=== PATIENT | male | born 1980 | race American Indian/Alaskan Native ===

== ENCOUNTER 2022-01-31 16:40 | Emergency (ER) | payer SELFPAY | END 2022-02-01 09:21 | disposition left against medical advice (07) | LOC: ED 16:40 | DX: Z31.89 Encounter for other procreative management (principal); Z53.21 Procedure and treatment not carried out due to patient leaving prior to being seen by health care provider ==

== ENCOUNTER 2022-02-01 21:45 | Inpatient (IN) | payer OTHER ==
[2022-02-01 22:41] LABS: Amphetamine Screen,Urine PRESUMPTIVE NEGATIVE; Benzodiazepines Screen,Urine PRESUMPTIVE NEGATIVE; Cannabinoid Screen,Urine PRESUMPTIVE NEGATIVE; Cocaine Screen,Urine PRESUMPTIVE NEGATIVE; Methadone Screen,Urine PRESUMPTIVE NEGATIVE; Opiate Screen,Urine PRESUMPTIVE NEGATIVE
[2022-02-01 22:47] LABS: Bilirubin,Urine NEG (Negative); Blood,Urine MOD (Negative); Color,Urine Amber (Yellow); Mucus,Urine 2+ /HPF; Urobilinogen,Urine < 2.0 mg/dL (<2.0)
[2022-02-01 22:48] LABS: Protein,Urine >500 mg/dL (Negative)
[2022-02-01 22:57] LABS: Basophils % (Auto) 0.5 % (0.0-1.8); Hematocrit 41.7 % (35.5-45.6); Hemoglobin 14.2 gm/dl (11.8-15.2); Mean Corpuscular HGB Conc 34 % (32-34); Mean Corpuscular Volume 89 fl (84-94); Monocytes # (Auto) 0.5 K/mm3 (0.0-0.8); Monocytes % (Auto) 7.7 % (0.0-7.3); Platelet Count 151 K/mm3 (140-440); Red Blood Count 4.68 M/mm3 (3.65-5.03); Red Cell Distribution Width 14.7 % (13.2-15.2)
--- NOTE | 2022-02-01 23:01 | XRay Report ---
CHEST 2 VIEWS INDICATION / CLINICAL INFORMATION: CHEST PAIN. COMPARISON: None available. FINDINGS: SUPPORT DEVICES: None. HEART / MEDIASTINUM: No significant abnormality. LUNGS / PLEURA: No significant pulmonary or pleural abnormality. No pneumothorax. BONES: No significant osseous abnormality. ADDITIONAL FINDINGS: No significant additional findings. IMPRESSION: 1. No active cardiopulmonary disease. Signer Name: Thierno Castro II, MD Signed: 02/01/2022 10:57 PM Workstation Name: [id number]
[2022-02-01 23:21] LABS: Alanine Aminotransferase 115 units/L (7-56); Albumin 4.2 g/dL (3.9-5); BUN/Creatinine Ratio 8; Blood Urea Nitrogen 11 mg/dL (9-20); Calcium 8.2 mg/dL (8.4-10.2); Hemolysis Index 16
[2022-02-02] MEDS ORDERED: LORazepam 2 MG/ML VIAL IV ONE ×4 (03:40→11:27)
[2022-02-02] MEDS ORDERED: ONDANSETRON 4 MG/2 ML INJ IV ONE ×2 (03:40→06:53)
--- NOTE | 2022-02-02 03:55 | Emergency Department Report ---
<MARSHALL FAIR - Last Filed: 02/02/22 05:16> ED General Adult HPI - General Chief complaint: Medical Clearance Stated complaint: MENTAL EVAL PUI?: No Time Seen by Provider: 02/02/22 03:36 Source: patient Mode of arrival: Ambulatory Limitations: No Limitations - History of Present Illness Initial comments: THIS IS A 42 YEAR OLD MALE BROUGHT IN BY SIGNIFICANT OTHER FOR MEDICAL CLEARANCE FOR [facility] WHICH PATIENT HAS HISTORY OF HYPERTENSION AND IS CURRENTLY DETOXING FROM ALCOHOL; LAST ALCOHOL USE WAS TODAY. PATIENT STATES HE DOESN'T FEEL WELL AND HAS BEEN VOMITING. DENIES ANY OTHER SYMPTOMS. PATIENT DENIES fever chill night sweat dizziness blurred vision lightheadedness headache tinnitus ear pain runny nose sore throat loss of taste loss of smell chest pain palpitation short breath cough abdominal pain diarrhea constipation dysuria myalgia arthralgia new rash he will call intolerance. - Related Data Allergies Allergy/AdvReac Type Severity Reaction Status Date / Time No Known Allergies Allergy Verified 02/01/22 22:16 ED Review of Systems Comment: All other systems reviewed and negative Constitutional: see HPI, chills, diaphoresis Eyes: as per HPI ENT: as per HPI Respiratory: no symptoms reported, see HPI Cardiovascular: as per HPI. denies: chest pain, palpitations Endocrine: no symptoms reported, see HPI Gastrointestinal: as per HPI, nausea, vomiting Musculoskeletal: as per HPI Skin: as per HPI Neurological: as per HPI Psychiatric: as per HPI. denies: homicidal thoughts, suicidal thoughts Hematological/Lymphatic: as per HPI ED Past Medical Hx - Past Medical History Previous Medical History?: Yes ED Physical Exam - General General appearance: anxious, obese, other (DIAPHORETIC) - Head Head exam: Present: atraumatic, normocephalic, normal inspection - Eye Eye exam: Present: normal appearance, PERRL, EOMI Pupils: Present: normal accommodation - ENT ENT exam: Present: normal exam, normal orophraynx, mucous membranes moist - Neck Neck exam: Present: normal inspection, full ROM - Respiratory Respiratory exam: Present: normal lung sounds bilaterally - Cardiovascular Cardiovascular Exam: Present: tachycardia - GI/Abdominal GI/Abdominal exam: Present: soft. Absent: distended, tenderness, guarding, rebound - Extremities Exam Extremities exam: Present: normal inspection, full ROM - Back Exam Back exam: Present: normal inspection, full ROM - Neurological Exam Neurological exam: Present: alert, oriented X3, CN II-XII intact - Psychiatric Psychiatric exam: Present: anxious - Skin Skin exam: Present: normal color ED Course - Reevaluation(s) Reevaluation #1: 02/02/22 04:37 After Ativan was given and during my reevaluation, patient much more calm and no diaphoretic and states he feels much better. I have informed him the KUB finding and patient denies any right sided abdominal discomfort. Will obtain an CT abdomen/pelvis w/o contrast for evaluation. 02/02/22 05:16 I HAVE INFORMED RN TO GIVE LASIX TO ANOTHER PATIENT BUT IT APPEARS IT WAS GIVEN TO THIS PATIENT BY ACCIDENT WHICH WAS NOT ORDERED BY ME. PATIENT'S HEART RATE IN 170S AND APPEARS REGULAR ON MONITOR. INFORMED RN TO OBTAIN ANOTHER EKG TO ENSURE SINUS AND ALSO GIVE 1L NS NOW. I HAVE SEEN THE PATIENT AND AGAIN, PATIENT DENIES TO BE IN ANY DISCOMFORT. AT 6AM, I WILL SIGN OUT MY PATIENT CARE TO MY COLLEAGUE DR. DE LOS SANTOS ED Medical Decision Making - Lab Data Result diagrams: 02/01/22 22:49 02/01/22 22:49 - EKG Data -: EKG Interpreted by Me (SINUS TACHY AT 149 BPM; NO ST ELEVATION OR DEPRESSION. NO WELLEN WAVES. ) EKG shows normal: sinus rhythm Rate: tachycardia ED Disposition Clinical Impression: Hypertensive urgency Alcohol withdrawal Qualifiers: Complication of substance-induced condition: with unspecified complication Qualified Code(s): F10.239 - Alcohol dependence with withdrawal, unspecified Disposition: ADMITTED INPATIENT Condition: Serious Additional Instructions: OUTPATIENT MENTAL HEALTH RESOURCES [facility], [facility] Catalina Nguyen MD: [address] [place] [address] [facility] [address] [place] [address] [place], [place] [id number] [facility]: [employer] [address] [place] [address] [place] [address] [phone] [facility]: [facility] Healthcare: [address] [place] [address] [address] [place] [address] [place] [address] [place] [address] [facility]: Kendall Vanessa MD: [address] [place], [place] [id number] [facility]: [address] [place] [address] [phone] [place] [facility]: Referrals: JESÚS VILLANUEVA MD [Staff Physician] - 3-5 Days <BEENA DE LOS SANTOS - Last Filed: 02/02/22 11:02> ED Review of Systems ROS: Stated complaint: MENTAL EVAL Other details as noted in HPI ED Course Vital Signs 02/01/22 02/02/22 02/02/22 22:02 03:21 04:02 Temperature 99.1 F 98.4 F Pulse Rate 156 H 158 H Respiratory 20 18 Rate Blood Pressure 187/118 180/140 Blood Pressure [Right] O2 Sat by Pulse 97 93 80 L Oximetry 02/02/22 02/02/22 02/02/22 04:08 04:16 04:30 Temperature 97.9 F Pulse Rate 93 H 157 H 146 H Respiratory 21 25 H 18 Rate Blood Pressure 185/124 Blood Pressure 173/111 [Right] O2 Sat by Pulse 94 94 95 Oximetry 02/02/22 02/02/22 02/02/22 04:46 05:00 05:16 Temperature Pulse Rate 152 H 164 H Respiratory 18 12 Rate Blood Pressure 188/140 170/130 180/121 Blood Pressure [Right] O2 Sat by Pulse 95 93 97 Oximetry 02/02/22 02/02/22 02/02/22 05:30 05:46 06:00 Temperature 98.0 F Pulse Rate 157 H 178 H Respiratory 20 37 H Rate Blood Pressure 180/121 176/121 Blood Pressure [Right] O2 Sat by Pulse 94 97 Oximetry 02/02/22 02/02/22 02/02/22 06:01 06:04 06:16 Temperature 98.0 F Pulse Rate 151 H 165 H 164 H Respiratory 32 H 19 22 Rate Blood Pressure 176/121 Blood Pressure [Right] O2 Sat by Pulse 97 97 93 Oximetry 02/02/22 02/02/22 02/02/22 06:30 06:46 07:00 Temperature Pulse Rate 159 H 171 H 161 H Respiratory 19 18 24 Rate Blood Pressure Blood Pressure [Right] O2 Sat by Pulse 94 94 94 Oximetry 02/02/22 02/02/22 02/02/22 07:16 07:30 07:37 Temperature Pulse Rate 161 H 170 H Respiratory 26 H 22 Rate Blood Pressure Blood Pressure 166/124 [Right] O2 Sat by Pulse 96 97 99 Oximetry 02/02/22 02/02/22 02/02/22 07:51 08:01 08:15 Temperature Pulse Rate 165 H 155 H 156 H Respiratory 22 22 19 Rate Blood Pressure Blood Pressure [Right] O2 Sat by Pulse 96 95 91 Oximetry 02/02/22 02/02/22 02/02/22 08:31 08:36 08:45 Temperature Pulse Rate 168 H 167 H Respiratory 25 H 30 H Rate Blood Pressure 206/144 Blood Pressure 201/124 [Right] O2 Sat by Pulse 95 96 Oximetry 02/02/22 02/02/22 02/02/22 09:01 09:15 09:28 Temperature Pulse Rate 168 H 125 H 167 H Respiratory 20 23 Rate Blood Pressure 204/149 204/149 201/144 Blood Pressure [Right] O2 Sat by Pulse 97 98 Oximetry 02/02/22 02/02/22 02/02/22 09:31 09:45 10:01 Temperature Pulse Rate 133 H 132 H 131 H Respiratory 15 28 H 27 H Rate Blood Pressure 177/128 177/128 176/133 Blood Pressure [Right] O2 Sat by Pulse 95 96 95 Oximetry 02/02/22 02/02/22 02/02/22 10:15 10:31 10:45 Temperature Pulse Rate 130 H 133 H 131 H Respiratory 30 H 29 H 22 Rate Blood Pressure 184/133 182/126 182/126 Blood Pressure [Right] O2 Sat by Pulse 96 96 96 Oximetry - Reevaluation(s) Reevaluation #2: 02/02/22 08:49 This patient is signed to me at shift change 6 AM with possible alcohol withdrawal with tachycardia. He was given 1 mg of Ativan just before I arrived at the emergency room. On evaluation patient was noticed to be having generalized tremor with tachycardia at the rate 130s beats per minute. I have asked the patient the last time he has any alcohol and he reported about 3 days. Patient denies any chest pain or shortness of breath. Given 5 mg Valium and will consider admitting this patient to ICU for further evaluation and treatment 02/02/22 08:52 I was informed that Lasix that was supposed to be given to another patient was given to this patient before i arrived. Reevaluation #3: 02/02/22 09:16 Patient told his bedside nurse that is also on metoprolol and has not been able to take it for the last 4 days for no reason. Considering that this patient is tachycardic and hypertensive with likely alcohol withdrawal so we will go ahead and give labetalol 20 mg and continue to monitor. Reevaluation #4: 02/02/22 11:[address] Aj and get patient admitted to medical floor with telemetry-- ED Medical Decision Making - Lab Data Result diagrams: 02/01/22 22:49 02/01/22 22:49 Critical care attestation.: If time is entered above; I have spent that time in minutes in the direct care of this critically ill patient, excluding procedure time. ED Disposition Is pt being admited?: Yes Does the pt Need Aspirin: No Time of Disposition: 11:01 (Dr Aj accept pt for further evaluation)
--- NOTE | 2022-02-02 04:30 | XRay Report ---
XR abdomen 1V ap INDICATION / CLINICAL INFORMATION: N/V. COMPARISON: None available. TECHNIQUE: One view supine AP abdomen. FINDINGS: TUBES / LINES: None. BOWEL GAS PATTERN: No significant abnormality. FREE AIR / EXTRALUMINAL GAS: None seen. ADDITIONAL FINDINGS: 4-5 mm right-sided nephrolith. Additional calcification projecting over the righ t SI joint may reflect distal right ureteral stone. IMPRESSION: 1. Probable right-sided nephrolith. A distal right ureteral stone not excluded. 2. No specific abnormality of the bowel gas pattern. Signer Name: Thierno Castro II, MD Signed: 02/02/2022 4:26 AM Workstation Name: [id number]
[2022-02-02] MEDS ORDERED: FUROSEMIDE 20 MG/2 ML INJ IV ONE (04:31)
[2022-02-02] MEDS ORDERED: LIDOCAINE VISCOUS 2% 15 ML ORAL LIQD PO ONE (04:48)
[2022-02-02] MEDS ORDERED: ALUM-MAG HYDROXIDE-SIMETHICONE 200-200-20MG/5ML ORAL LIQD 30 ML PO ONE (04:48)
[2022-02-02] MEDS ORDERED: SODIUM CHLORIDE 0.9% 1000 ML 1,000 ML IV ONE ×2 (05:15→07:25)
--- NOTE | 2022-02-02 06:23 | Cat Scan Report ---
CT ABDOMEN AND PELVIS WITHOUT CONTRAST INDICATION / CLINICAL INFORMATION: Possible renal / ureter stone seen on abdominal x-ray.. TECHNIQUE: Axial CT images were obtained through the abdomen and pelvis without IV contrast. All CT scans at this location are performed using CT dose reduction for ALARA by means of automated exposure control. COMPARISON: KUB 02/02/2022 FINDINGS: LOWER CHEST: No acute findings. Mild cardiomegaly. Fuvug-li-lbnuzzye hiatal hernia. LIVER: Diffuse low attenuation compatible with hepatic steatosis. GALLBLADDER: Cholelithiasis. Small stone likely reflects density on recent radiograph. BILE DUCTS: No significant abnormality. SPLEEN: No significant abnormality. PANCREAS: No significant abnormality. ADRENALS: No significant abnormality. KIDNEYS/URETERS: No urolithiasis. Mild prominence of the left ureter. Kidneys otherwise unremarkable. STOMACH / DUODENUM / SMALL BOWEL: The stomach, duodenum, and small bowel demonstrate no significant a bnormality. No specific abnormality of the mesentery demonstrated. COLON: No significant abnormality. APPENDIX: No significant abnormality. PERITONEUM: No free air or free fluid are present within the abdomen or pelvis. LYMPH NODES: No significant adenopathy. AORTA / ARTERIES: No significant abnormality. IVC / VEINS: No significant abnormality. URINARY BLADDER: No significant abnormality. REPRODUCTIVE ORGANS: No significant abnormality. ADDITIONAL ABDOMINAL/PELVIC FINDINGS: Fat-containing midline ventral hernia without incarceration. SKELETAL SYSTEM: No significant abnormality. IMPRESSION: 1. Cholelithiasis. 2. Hepatic steatosis. Signer Name: Thierno Castro II, MD Signed: 02/02/2022 6:18 AM Workstation Name: [id number]
[2022-02-02] MEDS ORDERED: diphenhydrAMINE 50 MG/ML VIAL ONE (08:32)
[2022-02-02] MEDS ORDERED: diphenhydrAMINE 50 MG/ML VIAL IV ONE (08:37)
[2022-02-02] MEDS ORDERED: diazePAM 10 MG/2 ML SYRINGE IV ONE (08:42)
--- NOTE | 2022-02-02 10:15 | Electrocardiograph Report ---
[facility] Test Date: 2022-02-02 Test Time: 05:23:35 Pat Name: MINDY QUINN Department: Room: Gender: M Legal Process Specialist: NURSE : 1980 Requested By: MARSHALL FAIR Order Number: [id number] Reading MD: Raúl Arce Measurements Intervals [place] Rate: 158 P: 36 [place]: 120 QRS: 21 QRSD: 92 T: 49 QT: 343 QTc: 556 Interpretive Statements Sinus tachycardia Anteroseptal infarct, age indeterminate Prolonged QT interval Compared to ECG 02/02/2022 04:23:43 Myocardial infarct finding now present Prolonged QT interval now present T-wave abnormality no longer present Possible ischemia no longer present Electronically Signed On 02-02-2022 10:15:39 EDT by Raúl Arce
--- NOTE | 2022-02-02 10:15 | Electrocardiograph Report ---
[facility] Test Date: 2022-02-01 Test Time: 22:06:34 Pat Name: MINDY QUINN Department: Room: Gender: M Packaging Inspector: DB : 1980 Requested By: MARSHALL FAIR Order Number: [id number] Reading MD: Raúl Arce Measurements Intervals [place] Rate: 137 P: 58 [place]: 155 QRS: 79 QRSD: 100 T: 224 QT: 307 QTc: 465 Interpretive Statements Sinus tachycardia LAE, consider biatrial enlargement Abnormal T, consider ischemia, lateral leads No previous ECG available for comparison Electronically Signed On 02-02-2022 10:14:37 EDT by Raúl Arce
--- NOTE | 2022-02-02 10:15 | Electrocardiograph Report ---
[facility] Test Date: 2022-02-02 Test Time: 04:23:43 Pat Name: MINDY QUINN Department: Room: Gender: M Billboard Mechanic: LILIANE : 1980 Requested By: MARSHALL FAIR Order Number: [id number] Reading MD: Raúl Arce Measurements Intervals [place] Rate: 149 P: 33 [place]: 112 QRS: 41 QRSD: 102 T: 196 QT: 312 QTc: 491 Interpretive Statements Sinus tachycardia Abnormal T, consider ischemia, diffuse leads Compared to ECG 02/01/2022 22:06:34 No significant changes Electronically Signed On 02-02-2022 10:15:27 EDT by Raúl Arce
[2022-02-02] MEDS ORDERED: ONDANSETRON 4 MG/2 ML INJ IV PRN (11:04)
[2022-02-02] MEDS ORDERED: ACETAMINOPHEN 325 MG TAB PO PRN ×2 (11:04→13:00)
[2022-02-02] MEDS ORDERED: LORazepam 2 MG/ML VIAL ONE (11:25)
--- NOTE | 2022-02-02 12:24 | Consultation ---
History of Present Illness - Reason for Consult Consult date: 02/02/22 Reason for consult: ETOH Dependence - History of Present Psychiatric Illness HPI: THIS IS A 42 YEAR OLD MALE BROUGHT IN BY SIGNIFICANT OTHER FOR MEDICAL CLEARANCE FOR [facility] WHICH PATIENT HAS HISTORY OF HYPERTENSION AND IS CURRENTLY DETOXING FROM ALCOHOL; LAST ALCOHOL USE WAS TODAY. PATIENT STATES HE DOESN'T FEEL WELL AND HAS BEEN VOMITING. DENIES ANY OTHER SYMPTOMS. The patient was seen today. He says he came to the ER to get cleared to go to [facility] for alcohol dependence treatment. The patient is calm, cooperative and polite. His significant other is at bedside. He tells me it's okay to speak in front of her. The patient says he drinks a pint of rum daily. He says his last drinik was yesterday. He says he's never had rehab before. The patient's girlfriend says he started seeing psych about a week ago for depression. She says he was started on prozac and vistaril. His girlfriend says the vistaril made the patient more anxious. The patient denies SI/HI. He denies past attempts or ever feeling thoughts of self harm. He also denies hallucinations of any kind. The patient denies any illicit drug use or nicotine. Will place on CIWA and start medications. Will follow the patient during his stay in the hospital for med management. PAST PSYCHIATRIC HISTORY Diagnoses: MDD Suicide attempts or Self-harm behavior: Denies Prior psychiatric hospitalizations: Denies Substance Abuse history: Alcohol Previous psychiatric medications tried: Vistaril and prozac Outpatient treatment: Yes PAST MEDICAL HISTORY: None reported Family Psychiatric History: None reported or documented SOCIAL HISTORY Marital Status: Living Arrangements: Lives with girlfriend Employment Status: Unemployed Access to guns/weapons: Denies Education: History of Abuse: Yes Legal History: Unknown REVIEW OF SYSTEMS Constitutional: Negative for weight loss ENT: Negative for stridor Respiratory: Negative for cough or hemoptysis All other systems reviewed and are negative MENTAL STATUS EXAMINATION General Appearance and Behavior: Age appropriate, good hygiene, wearing appropriate clothes, good eye contact, calm, cooperative Cooperation: Participating/engaged, but Guarded Psychomotor Behavior: Psychomotor normal Mood: okay Affect and affective range: congruent with stated mood Thought Process: goal directed Thought Content: None Speech: normal tone and pace Suicidal Ideation: Denies Homicidal Ideation: Denies Hallucinations: Denies Delusions: None elicited Impulse Control: Limited Insight and Judgment: Good insight and judgment Memory: Good Attention: attentive Orientation: Alert, oriented Assessment and Plan Major Depressive Disorder Alcohol Dependence Treatment Plan CIWA Start Prozac 30mg po daily Start Buspar 7.5mg po BID Start Trazodone 50mg po qhs Medical: per primary Sitter: Defer to primary Disposition: Do not recommend acute psychiatric inpatient treatment. The patient understands that if SI/HI or any fear of endangerment she is to seek immediate assistance. The linotypist to give the patient referrals for outpatient psych and alcohol rehab The patient to abstain from alcohol Will follow for med management. Thanks Case staffed with Dr. Cavazos Medications and Allergies Allergies Allergy/AdvReac Type Severity Reaction Status Date / Time No Known Allergies Allergy Verified 02/01/22 22:16 Home Medications Medication Instructions Recorded Confirmed Last Taken Type Lasix 20 mg PO DAILY 02/02/22 02/02/22 01/29/22 History Losartan 25 mg PO DAILY 02/02/22 02/02/22 01/29/22 History Metoprolol Succinate 50 mg PO DAILY 02/02/22 02/02/22 01/29/22 History Active Meds: Active Medications Acetaminophen (Acetaminophen 325 Mg Tab) 650 mg PO Q4H PRN PRN Reason: Pain MILD(1-3)/Fever >100.5/WAHL Morphine Sulfate (Morphine 2 Mg/1 Ml Inj) 2 mg IV Q4H PRN PRN Reason: Pain, Moderate (4-6) Ondansetron HCl (Ondansetron 4 Mg/2 Ml Inj) 4 mg IV Q8H PRN PRN Reason: Nausea And Vomiting Sodium Chloride (Sodium Chloride 0.9% 10 Ml Flush Syringe) 10 ml IV BID WILBUR Last Admin: 02/02/22 11:27 Dose: 10 ml Sodium Chloride (Sodium Chloride 0.9% 10 Ml Flush Syringe) 10 ml IV PRN PRN PRN Reason: LINE FLUSH Mental Status Exam - Vital signs Last Vital Signs Temp 98.0 F 02/02/22 06:01 Pulse 139 H 02/02/22 12:01 Resp 28 H 02/02/22 12:01 BP 195/140 02/02/22 12:01 Pulse Ox 98 02/02/22 12:01 Results Result Diagrams: 02/01/22 22:49 02/01/22 22:49 Abnormal lab results 02/01/22 02/01/22 02/01/22 Range/Units 04:07 22:49 22:49 [place] % (Auto) (0.0-7.3) % Lymph # (Auto) (1.2-5.4) K/mm3 Seg Neutrophils % (40.0-70.0) % Chloride (98-107) mmol/L Glucose (75-100) mg/dL Calcium (8.4-10.2) mg/dL AST (5-40) units/L ALT (7-56) units/L Ur Specific [place] 1.038 H (1.003-1.030) Salicylates < 0.3 L (2.8-20.0) mg/dL Acetaminophen 5.0 L (10.0-30.0) ug/mL Plasma/Serum Alcohol (0-0.07) % 02/01/22 02/01/22 02/01/22 Range/Units 22:49 22:49 22:49 [place] % (Auto) 7.7 H (0.0-7.3) % Lymph # (Auto) 1.0 L (1.2-5.4) K/mm3 Seg Neutrophils % 76.8 H (40.0-70.0) % Chloride 95.8 L (98-107) mmol/L Glucose 162 H (75-100) mg/dL Calcium 8.2 L (8.4-10.2) mg/dL AST 251 H (5-40) units/L ALT 115 H (7-56) units/L Ur Specific [place] (1.003-1.030) Salicylates (2.8-20.0) mg/dL Acetaminophen (10.0-30.0) ug/mL Plasma/Serum Alcohol 0.28 H (0-0.07) % All other labs normal.
[2022-02-02] MEDS ORDERED: METOCLOPRAMIDE 10 MG/2 ML INJ IV PRN (12:28)
[2022-02-02] MEDS ORDERED: LORazepam 2 MG/ML VIAL IV PRN (12:29)
[2022-02-02] MEDS: busPIRone 5 MG TAB PO SCH ×2 (14:48→21:46)
[2022-02-02] MEDS: carvediloL 12.5 MG TAB PO SCH ×2 (14:48→21:47)
[2022-02-02] MEDS: FLUoxetine 10 MG TAB PO SCH (14:48)
[2022-02-02] MEDS: VALSARTAN 160MG TAB PO SCH (14:48)
[2022-02-02] MEDS: FAMOTIDINE 20 MG/2 ML INJ IV SCH ×2 (14:49→21:46)
[2022-02-02] MEDS: D5W/0.9% NACL 1,000 ML IV SCH ×2 (14:49→23:32)
[2022-02-02] MEDS: LORazepam 2 MG/ML VIAL IV PRN ×3 (15:06→23:27)
[2022-02-02] MEDS: hydrALAZINE 20 MG/1 ML INJ IV PRN (20:24)
[2022-02-02] MEDS: chlordiazePOXIDE 25 MG CAP PO PRN (20:30)
[2022-02-02] MEDS: traZODone 50 MG TAB PO SCH (21:46)
[2022-02-03] MEDS: chlordiazePOXIDE 25 MG CAP PO PRN ×2 (00:54→21:26)
[2022-02-03] MEDS: VALSARTAN 160MG TAB PO SCH (02:25)
[2022-02-03] MEDS: LORazepam 2 MG/ML VIAL IV PRN ×3 (03:57→08:26)
[2022-02-03] MEDS ORDERED: dilTIAZem 25 MG/5 ML INJ IV ONE (04:12)
[2022-02-03] MEDS ORDERED: SODIUM CHLORIDE 0.9% 500 ML 500 ML IV ONE (04:24)
[2022-02-03 04:49] LABS: Basophils % (Auto) 0.4 % (0.0-1.8); Eosinophils % (Auto) 0.4 % (0.0-4.3); Hematocrit 37.2 % (35.5-45.6); Hemoglobin 12.3 gm/dl (11.8-15.2); Lymphocytes % (Auto) 13.6 % (13.4-35.0); Mean Corpuscular HGB Conc 33 % (32-34); Mean Corpuscular Volume 90 fl (84-94); Monocytes # (Auto) 0.6 K/mm3 (0.0-0.8); Monocytes % (Auto) 8.2 % (0.0-7.3); Platelet Count 115 K/mm3 (140-440); Red Blood Count 4.14 M/mm3 (3.65-5.03); Red Cell Distribution Width 14.3 % (13.2-15.2)
[2022-02-03 05:05] LABS: Albumin 3.7 g/dL (3.9-5); Calcium 8.1 mg/dL (8.4-10.2)
--- NOTE | 2022-02-03 05:30 | Event Note ---
Date: 02/03/22 Code med was called. Patient is agitated tachycardic BP is 162/116. Patient has a history of bad alcohol abuse. Patient is on CIWA protocol and Ativan but still patient is agitated try to get out of bed and get out of restraints. Patient is tachycardic BP is skyhigh. Give the patient Cardizem 10 mg IV x1 dose, IV Ativan and transfer the patient to the IMCU and start Precedex drip
--- NOTE | 2022-02-03 06:29 | History and Physical Report ---
History of Present Illness Date of examination: 02/02/22 Date of admission: 02/02/22 11:04 Chief complaint: Severe agitation History of present illness: 42-year-old male brought in by significant other for medical clearance for removal wounds for alcohol rehab. Patient history of hypertension. Every alcohol consumption. Last alcohol use was today. Patient apparently drinks a lot of vodka on a regular basis. Because of his high blood pressure which could not be controlled patient being admitted to the hospitalist service. Patient was severely agitated. More calm during my examination. Patient is willing for detoxification. Patient is willing to stop alcohol. Review of Systems Comment: All other systems reviewed and negative Constitutional: see HPI, chills, diaphoresis Eyes: as per HPI ENT: as per HPI Respiratory: no symptoms reported, see HPI Cardiovascular: as per HPI. denies: chest pain, palpitations Endocrine: no symptoms reported, see HPI Gastrointestinal: as per HPI, nausea, vomiting Musculoskeletal: as per HPI Skin: as per HPI Neurological: as per HPI Psychiatric: as per HPI. denies: homicidal thoughts, suicidal thoughts Hematological/Lymphatic: as per HPI Past History Past Medical History: hypertension Past Surgical History: No surgical history Social history: lives with family, full code Family history: hypertension Medications and Allergies Allergies Allergy/AdvReac Type Severity Reaction Status Date / Time No Known Allergies Allergy Verified 02/01/22 22:16 Home Medications Medication Instructions Recorded Confirmed Last Taken Type Furosemide [Lasix] 20 mg PO QDAY 02/02/22 02/02/22 01/29/22 History Losartan [Cozaar] 25 mg PO QDAY 02/02/22 02/02/22 01/29/22 History Metoprolol Xl [Metoprolol 50 mg PO QDAY 02/02/22 02/02/22 01/29/22 History SUCCINATE ER TAB] Active Meds: Active Medications Acetaminophen (Acetaminophen 325 Mg Tab) 650 mg PO Q4H PRN PRN Reason: Pain MILD(1-3)/Fever >100.5/WAHL Buspirone HCl (Buspirone 5 Mg Tab) 7.5 mg PO BID [facility] Last Admin: 02/02/22 21:46 Dose: 7.5 mg Carvedilol (Carvedilol 12.5 Mg Tab) 12.5 mg PO BID [facility] Last Admin: 02/02/22 21:47 Dose: 12.5 mg Chlordiazepoxide HCl (Chlordiazepoxide 25 Mg Cap) 50 mg PO Q1HR PRN PRN Reason: Rolando 05-14 Last Admin: 02/03/22 00:54 Dose: 50 mg Famotidine (Famotidine 20 Mg/2 Ml Inj) 20 mg IV BID [facility] Last Admin: 02/02/22 21:46 Dose: 20 mg Fluoxetine HCl (Fluoxetine 10 Mg Tab) 30 mg PO QDAY [facility] Last Admin: 02/02/22 14:48 Dose: 30 mg Hydralazine HCl (Hydralazine 20 Mg/1 Ml Inj) 10 mg IV Q2H PRN PRN Reason: Blood Pressure Last Admin: 02/02/22 20:24 Dose: 10 mg Dextrose/Sodium Chloride (D5ns) 1,000 mls @ 125 mls/hr IV DIRECT [facility] Last Admin: 02/02/22 23:32 Dose: 125 mls/hr Dexmedetomidine HCl 200 mcg/ (Sodium Chloride) 50 mls @ 5.103 mls/hr IV TITRATE [facility]; Protocol Labetalol HCl (Labetalol 20 Mg/4 Ml Inj) 10 mg IV Q6HR PRN PRN Reason: Blood Pressure Lorazepam (Lorazepam 2 Mg/Ml Vial) 2 mg IV Q2H PRN PRN Reason: Rolando 05-14 Last Admin: 02/03/22 05:26 Dose: 2 mg Metoclopramide HCl (Metoclopramide 10 Mg/2 Ml Inj) 10 mg IV Q6H PRN PRN Reason: Nausea And Vomiting Morphine Sulfate (Morphine 2 Mg/1 Ml Inj) 2 mg IV Q4H PRN PRN Reason: Pain, Moderate (4-6) Ondansetron HCl (Ondansetron 4 Mg/2 Ml Inj) 4 mg IV Q8H PRN PRN Reason: Nausea And Vomiting Sodium Chloride (Sodium Chloride 0.9% 10 Ml Flush Syringe) 10 ml IV BID [facility] Last Admin: 02/02/22 21:47 Dose: 10 ml Sodium Chloride (Sodium Chloride 0.9% 10 Ml Flush Syringe) 10 ml IV PRN PRN PRN Reason: LINE FLUSH Trazodone HCl (Trazodone 50 Mg Tab) 50 mg PO QHS [facility] Last Admin: 02/02/22 21:46 Dose: 50 mg Valsartan (Valsartan 160mg Tab) 160 mg PO Q12H [facility] Last Admin: 02/02/22 14:48 Dose: 160 mg Exam - Constitutional Vitals: Temp Pulse Resp BP Pulse Ox 98.6 F 139 H 18 132/102 98 02/03/22 03:56 02/03/22 05:11 02/03/22 05:11 02/03/22 05:11 02/03/22 05:11 General appearance: Present: no acute distress, well-nourished - EENT Eyes: Present: PERRL ENT: hearing intact, clear oral mucosa - Neck Neck: Present: supple, normal ROM - Respiratory Respiratory effort: normal Respiratory: bilateral: CTA - Cardiovascular Heart rate: 78 Rhythm: regular Heart Sounds: Present: S1 & S2. Absent: rub, click - Extremities Extremities: pulses symmetrical, No edema Peripheral Pulses: within normal limits - Abdominal General gastrointestinal: Present: soft, non-tender, non-distended, normal bowel sounds Male genitourinary: Present: normal - Rectal Rectal Exam: deferred - Integumentary Integumentary: Present: clear, warm, dry - Musculoskeletal Musculoskeletal: gait normal, strength equal bilaterally - Psychiatric Psychiatric: appropriate mood/affect, intact judgment & insight - Neurologic Neurologic: CNII-XII intact, moves all extremities - Allied Health Allied health notes reviewed: nursing, case management HEART Score - HEART Score Troponin: Troponin T < 0.010 ng/mL (0.00-0.029) 02/02/22 04:12 Results - Labs CBC & Chem 7: 02/03/22 04:11 02/03/22 04:11 Labs: Laboratory Last Values WBC 7.7 K/mm3 (4.5-11.0) 02/03/22 04:11 RBC 4.14 M/mm3 (3.65-5.03) 02/03/22 04:11 Hgb 12.3 gm/dl (11.8-15.2) 02/03/22 04:11 Hct 37.2 % (35.5-45.6) 02/03/22 04:11 MCV 90 fl (84-94) 02/03/22 04:11 MCH 30 pg (28-32) 02/03/22 04:11 MCHC 33 % (32-34) 02/03/22 04:11 RDW 14.3 % (13.2-15.2) 02/03/22 04:11 Plt Count 115 K/mm3 (140-440) L 02/03/22 04:11 Lymph % (Auto) 13.6 % (13.4-35.0) 02/03/22 04:11 [place] % (Auto) 8.2 % (0.0-7.3) H 02/03/22 04:11 Eos % (Auto) 0.4 % (0.0-4.3) 02/03/22 04:11 Baso % (Auto) 0.4 % (0.0-1.8) 02/03/22 04:11 Lymph # (Auto) 1.0 K/mm3 (1.2-5.4) L 02/03/22 04:11 [place] # (Auto) 0.6 K/mm3 (0.0-0.8) 02/03/22 04:11 Eos # (Auto) 0.0 K/mm3 (0.0-0.4) 02/03/22 04:11 Baso # (Auto) 0.0 K/mm3 (0.0-0.1) 02/03/22 04:11 Seg Neutrophils % 77.4 % (40.0-70.0) H 02/03/22 04:11 Seg Neutrophils # 5.9 K/mm3 (1.8-7.7) 02/03/22 04:11 Sodium 137 mmol/L (137-145) 02/03/22 04:11 Potassium 4.0 mmol/L (3.6-5.0) 02/03/22 04:11 Chloride 96.9 mmol/L (98-107) L 02/03/22 04:11 Carbon Dioxide 24 mmol/L (22-30) 02/03/22 04:11 Anion Gap 20 mmol/L 02/03/22 04:11 BUN 17 mg/dL (9-20) 02/03/22 04:11 Creatinine 1.7 mg/dL (0.8-1.3) H 02/03/22 04:11 Estimated GFR 54 ml/min 02/03/22 04:11 BUN/Creatinine Ratio 10 % 02/03/22 04:11 Glucose 139 mg/dL (75-100) H 02/03/22 04:11 Calcium 8.1 mg/dL (8.4-10.2) L 02/03/22 04:11 Total Bilirubin 1.30 mg/dL (0.1-1.2) H 02/03/22 04:11 AST 181 units/L (5-40) H 02/03/22 04:11 ALT 94 units/L (7-56) H 02/03/22 04:11 Alkaline Phosphatase 70 units/L (35-129) 02/03/22 04:11 Troponin T < 0.010 ng/mL (0.00-0.029) 02/02/22 04:12 NT-Pro-B Natriuret Pep 171.3 pg/mL (0-450) 02/02/22 04:12 Total Protein 6.5 g/dL (6.3-8.2) 02/03/22 04:11 Albumin 3.7 g/dL (3.9-5) L 02/03/22 04:11 Albumin/Globulin Ratio 1.3 % 02/03/22 04:11 Urine Color [place] (Yellow) 02/01/22 04:07 Urine Turbidity Clear (Clear) 02/01/22 04:07 Urine pH 5.0 (5.0-7.0) 02/01/22 04:07 Ur Specific [place] 1.038 (1.003-1.030) H 02/01/22 04:07 Urine Protein >500 mg/dL (Negative) 02/01/22 04:07 Urine Glucose (UA) Neg mg/dL (Negative) 02/01/22 04:07 Urine Ketones 20 mg/dL (Negative) 02/01/22 04:07 Urine Blood Mod (Negative) 02/01/22 04:07 Urine Nitrite Neg (Negative) 02/01/22 04:07 Urine Bilirubin Neg (Negative) 02/01/22 04:07 Urine Urobilinogen < 2.0 mg/dL (<2.0) 02/01/22 04:07 Ur Leukocyte Esterase Neg (Negative) 02/01/22 04:07 Urine WBC (Auto) 2.0 /HPF (0.0-6.0) 02/01/22 04:07 Urine RBC (Auto) 4.0 /HPF (0.0-6.0) 02/01/22 04:07 U Epithel Cells (Auto) 1.0 /HPF (0-13.0) 02/01/22 04:07 Urine Mucus 2+ /HPF 02/01/22 04:07 Salicylates < 0.3 mg/dL (2.8-20.0) L 02/01/22 22:49 Urine Opiates Screen Presumptive negative 02/01/22 04:07 Urine Methadone Screen Presumptive negative 02/01/22 04:07 Acetaminophen 5.0 ug/mL (10.0-30.0) L 02/01/22 22:49 Ur Barbiturates Screen Presumptive negative 02/01/22 04:07 Ur Phencyclidine Scrn Presumptive negative 02/01/22 04:07 Ur Amphetamines Screen Presumptive negative 02/01/22 04:07 U Benzodiazepines Scrn Presumptive negative 02/01/22 04:07 Urine Cocaine Screen Presumptive negative 02/01/22 04:07 U Marijuana (THC) Screen Presumptive negative 02/01/22 04:07 Drugs of Abuse Note Disclamer 02/01/22 04:07 Plasma/Serum Alcohol 0.01 % (0-0.07) 02/02/22 08:58 Short CBC 02/03/22 Range/Units 04:11 WBC 7.7 (4.5-11.0) K/mm3 Hgb 12.3 (11.8-15.2) gm/dl Hct 37.2 (35.5-45.6) % Plt Count 115 L (140-440) K/mm3 BMP 02/03/22 04:11 Sodium 137 Potassium 4.0 Chloride 96.9 L Carbon Dioxide 24 BUN 17 Creatinine 1.7 H Glucose 139 H Calcium 8.1 L Liver Function 02/03/22 Range/Units 04:11 Total Bilirubin 1.30 H (0.1-1.2) mg/dL AST 181 H (5-40) units/L ALT 94 H (7-56) units/L Alkaline Phosphatase 70 (35-129) units/L Albumin 3.7 L (3.9-5) g/dL Ayers/IV: Voiding Method Condom Catheter Assessment and Plan Advance Directives: Yes (Full code) VTE prophylaxis?: Chemical Plan of care discussed with patient/family: Yes - Patient Problems (1) Hypertensive emergency Current Visit: Yes Status: Acute Plan to address problem: Patient initiated on valsartan carvedilol and amlodipine. Hydralazine as needed. (2) Sinus tachycardia Current Visit: Yes Status: Acute Plan to address problem: Secondary to dehydration and volume depletion and alcohol withdrawal IV fluids and IV vancomycin for now (3) EtOH dependence Current Visit: Yes Status: Acute Plan to address problem: CIWA protocol for now (4) Delirium tremens Current Visit: Yes Status: Inactive Plan to address problem: Not present at this time To watch for DTs IV Ativan as per CIWA protocol (5) DVT prophylaxis Current Visit: Yes Status: Acute Plan to address problem: On heparin and GI prophylaxis (6) Advance care planning Current Visit: Yes Status: Acute Plan to address problem: Disease education collected, care plan discussed, diagnosis discussed, prognosis discussed. Patient is full code. Patient acknowledges understanding and agreement with care plan. +30 minutes.
[2022-02-03] MEDS ORDERED: SODIUM CHLORIDE 0.9% 1000 ML 1,000 ML IV ONE (08:51)
[2022-02-03] MEDS ORDERED: carvediloL 12.5 MG TAB PO SCH (08:54)
[2022-02-03 10:12] LABS: Free T4 (Free Thyroxine) 1.4 ng/dL (0.76-1.46)
[2022-02-03] MEDS: FAMOTIDINE 20 MG/2 ML INJ IV SCH ×2 (10:33→21:26)
[2022-02-03] MEDS: busPIRone 5 MG TAB PO SCH ×2 (11:33→21:26)
[2022-02-03] MEDS: cloNIDine 0.1 MG TAB PO PRN ×2 (11:33→16:44)
--- NOTE | 2022-02-03 12:48 | Progress Note ---
Assessment and Plan Impression: Alcohol abuse Cardiomegaly noted on chest x-ray Snoring rule out sleep apnea Recommendation: Continue with [facility] protocol. Consider sleep study as outpatient. Monitor patient closely and careful regarding sedation on this patient due to suspected sleep apnea. Subjective Date of service: 02/03/22 Interval history: History obtained from the chart. Patient unable to provide a history as he is sedated at this time. 42-year-old male brought in by significant other for medical clearance for removal wounds for alcohol rehab. Patient history of hypertension. Every alcohol consumption. Last alcohol use was today. Patient apparently drinks a lot of vodka on a regular basis. Because of his high blood pressure which could not be controlled patient being admitted to the hospitalist service. Patient was severely agitated. Patient is willing for detoxific ation. Patient is willing to stop alcohol. Objective Vital Signs - 12hr 02/03/22 02/03/22 02/03/22 02:19 03:56 04:16 Temperature 98.6 F Pulse Rate 121 H 155 H 139 H Pulse Rate [ Apical] Respiratory 18 18 18 Rate Blood Pressure 117/79 147/103 128/78 O2 Sat by Pulse 97 98 97 Oximetry 02/03/22 02/03/22 02/03/22 05:11 05:21 05:58 Temperature Pulse Rate 139 H 147 H 133 H Pulse Rate [ Apical] Respiratory 18 22 22 Rate Blood Pressure 132/102 164/116 O2 Sat by Pulse 98 98 96 Oximetry 02/03/22 02/03/22 02/03/22 06:00 06:11 06:21 Temperature Pulse Rate 132 H 130 H 151 H Pulse Rate [ Apical] Respiratory 35 H 21 15 Rate Blood Pressure 132/92 132/92 132/92 O2 Sat by Pulse 96 97 96 Oximetry 02/03/22 02/03/22 02/03/22 06:31 06:41 06:51 Temperature Pulse Rate 128 H 141 H 140 H Pulse Rate [ Apical] Respiratory 27 H 19 23 Rate Blood Pressure 132/92 132/92 132/92 O2 Sat by Pulse 96 97 96 Oximetry 02/03/22 02/03/22 02/03/22 07:01 07:11 07:21 Temperature Pulse Rate 136 H 127 H 134 H Pulse Rate [ Apical] Respiratory 14 17 16 Rate Blood Pressure 148/118 148/118 148/118 O2 Sat by Pulse 97 Oximetry 02/03/22 02/03/22 02/03/22 07:25 08:00 11:33 Temperature 101.1 F H Pulse Rate 116 H Pulse Rate [ 135 H Apical] Respiratory Rate Blood Pressure 115/88 O2 Sat by Pulse 98 Oximetry 02/03/22 11:41 Temperature 98.0 F Pulse Rate Pulse Rate [ Apical] Respiratory Rate Blood Pressure O2 Sat by Pulse Oximetry Constitutional: asleep, other (Loud snoring noted. Low-grade fever) Eyes: non-icteric ENT: oropharynx moist Neck: supple, no lymphadenopathy Ascultation: Bilateral: clear Cardiovascular: other (Tachycardia present) Gastrointestinal: normoactive bowel sounds, soft, non-tender Integumentary: normal Extremities: no cyanosis, no edema Neurologic: unable to assess, other (Sedated) CBC and BMP: 02/03/22 04:11 02/03/22 04:11 Abnormal lab findings: Abnormal Labs 02/01/22 02/01/22 02/01/22 04:07 22:49 22:49 Plt Count [place] % (Auto) Lymph # (Auto) Seg Neutrophils % Chloride Creatinine Glucose Calcium Total Bilirubin AST ALT Albumin Ur Specific [place] 1.038 H Salicylates < 0.3 L Acetaminophen 5.0 L Plasma/Serum Alcohol 02/01/22 02/01/22 02/01/22 22:49 22:49 22:49 Plt Count [place] % (Auto) 7.7 H Lymph # (Auto) 1.0 L Seg Neutrophils % 76.8 H Chloride 95.8 L Creatinine Glucose 162 H Calcium 8.2 L Total Bilirubin AST 251 H ALT 115 H Albumin Ur Specific [place] Salicylates Acetaminophen Plasma/Serum Alcohol 0.28 H 02/03/22 02/03/22 04:11 04:11 Plt Count 115 L [place] % (Auto) 8.2 H Lymph # (Auto) 1.0 L Seg Neutrophils % 77.4 H Chloride 96.9 L Creatinine 1.7 H Glucose 139 H Calcium 8.1 L Total Bilirubin 1.30 H AST 181 H ALT 94 H Albumin 3.7 L Ur Specific [place] Salicylates Acetaminophen Plasma/Serum Alcohol
--- NOTE | 2022-02-03 13:26 | Progress Note ---
Assessment and Plan Assessment and plan: 42-year-old male brought in by significant other for medical clearance for removal wounds for alcohol rehab. Patient history of hypertension. Every alcohol consumption. Last alcohol use was today. Patient apparently drinks a lot of vodka on a regular basis. Because of his high blood pressure which could not be controlled patient being admitted to the hospitalist service. Patient was severely agitated. More calm during my examination. Patient is willing for detoxification. Patient is willing to stop alcohol. 02/03: Patient was transferred to the [facility] yesterday due to confusion, agitation and hypertensive urgency. Remains on restraints. Was placed on Precedex. This morning we will start patient on clonidine and attempt to wean down Precedex. If this does not work patient will likely be transferred to the ICU for Precedex management. Of discussed with nursing staff I will also consulted glass mechanic. He continues on the CIWA protocol. He is also noted to have acute kidney injury for which a repeat study has been obtained in addition to fluid resuscitation. If worsening renal function will obtain nephrology consulted Lifestyle modification counseling when patient is more stable able to follow commands #Hypertensive emergency Current Visit: Yes Status: Acute Plan to address problem: Patient initiated on valsartan carvedilol and amlodipine. Hydralazine as needed. # Acute kidney injury likely secondary to vasomotor nephropathy #sinus tachycardia Current Visit: Yes Status: Acute Plan to address problem: Secondary to dehydration and volume depletion and alcohol withdrawal IV fluids and IV vancomycin for now # EtOH dependence Current Visit: Yes Status: Acute Plan to address problem: CIWA protocol for now # Delirium tremens Current Visit: Yes Status: Inactive Plan to address problem: Not present at this time To watch for DTs IV Ativan as per CIWA protocol # DVT prophylaxis Current Visit: Yes Status: Acute Plan to address problem: On heparin and GI prophylaxis # Advance care planning Current Visit: Yes Status: Acute Plan to address problem: Disease education collected, care plan discussed, diagnosis discussed, prognosis discussed. Patient is full code. Patient acknowledges understanding and agreement with care plan. +30 minutes. No family present at this time for discussion History Interval history: Patient seen and examined appears to be improving mentally but overall still intermittently confused. Hospitalist Physical - Physical exam Narrative exam: VITAL SIGNS: Reviewed. GENERAL: The patient appears normally developed, unrestrained vital signs as documented. HEAD: No signs of head trauma. EYES: Pupils are equal. Extraocular motions intact. EARS: Hearing grossly intact. MOUTH: Oropharynx is normal. NECK: No adenopathy, no JVD. CHEST: Chest with clear breath sounds bilaterally. No wheezes, rales, or rhonchi. CARDIAC: Tachycardic with regular rate. S1 and S2, without murmurs, gallops, or rubs. VASCULAR: No Edema. Peripheral pulses normal and equal in all extremities. ABDOMEN: Soft, non tender and non distended. No rebound or guarding, and no masses palpated. Bowel Sounds normal. MUSCULOSKELETAL: Good range of motion of all major joints. Extremities without clubbing, cyanosis or edema. NEUROLOGIC EXAM: Alert and oriented x person and place no focal sensory or strength deficits. Speech normal. Follows some commands. PSYCHIATRIC: Mood normal. SKIN: detail exam as documented in skin assessment - Constitutional Vitals: Temp Pulse Resp BP Pulse Ox 98.0 F 116 H 16 115/88 98 02/03/22 11:41 02/03/22 11:33 02/03/22 07:21 02/03/22 11:33 02/03/22 08:00 General appearance: Present: no acute distress, well-nourished HEART Score - HEART Score Troponin: Troponin T < 0.010 ng/mL (0.00-0.029) 02/02/22 04:12 Results - Labs CBC & Chem 7: 02/03/22 04:11 02/03/22 04:11 Labs: Laboratory Last Values WBC 7.7 K/mm3 (4.5-11.0) 02/03/22 04:11 RBC 4.14 M/mm3 (3.65-5.03) 02/03/22 04:11 Hgb 12.3 gm/dl (11.8-15.2) 02/03/22 04:11 Hct 37.2 % (35.5-45.6) 02/03/22 04:11 MCV 90 fl (84-94) 02/03/22 04:11 MCH 30 pg (28-32) 02/03/22 04:11 MCHC 33 % (32-34) 02/03/22 04:11 RDW 14.3 % (13.2-15.2) 02/03/22 04:11 Plt Count 115 K/mm3 (140-440) L 02/03/22 04:11 Lymph % (Auto) 13.6 % (13.4-35.0) 02/03/22 04:11 [place] % (Auto) 8.2 % (0.0-7.3) H 02/03/22 04:11 Eos % (Auto) 0.4 % (0.0-4.3) 02/03/22 04:11 Baso % (Auto) 0.4 % (0.0-1.8) 02/03/22 04:11 Lymph # (Auto) 1.0 K/mm3 (1.2-5.4) L 02/03/22 04:11 [place] # (Auto) 0.6 K/mm3 (0.0-0.8) 02/03/22 04:11 Eos # (Auto) 0.0 K/mm3 (0.0-0.4) 02/03/22 04:11 Baso # (Auto) 0.0 K/mm3 (0.0-0.1) 02/03/22 04:11 Seg Neutrophils % 77.4 % (40.0-70.0) H 02/03/22 04:11 Seg Neutrophils # 5.9 K/mm3 (1.8-7.7) 02/03/22 04:11 Sodium 137 mmol/L (137-145) 02/03/22 04:11 Potassium 4.0 mmol/L (3.6-5.0) 02/03/22 04:11 Chloride 96.9 mmol/L (98-107) L 02/03/22 04:11 Carbon Dioxide 24 mmol/L (22-30) 02/03/22 04:11 Anion Gap 20 mmol/L 02/03/22 04:11 BUN 17 mg/dL (9-20) 02/03/22 04:11 Creatinine 1.7 mg/dL (0.8-1.3) H 02/03/22 04:11 Estimated GFR 54 ml/min 02/03/22 04:11 BUN/Creatinine Ratio 10 % 02/03/22 04:11 Glucose 139 mg/dL (75-100) H 02/03/22 04:11 Calcium 8.1 mg/dL (8.4-10.2) L 02/03/22 04:11 Total Bilirubin 1.30 mg/dL (0.1-1.2) H 02/03/22 04:11 AST 181 units/L (5-40) H 02/03/22 04:11 ALT 94 units/L (7-56) H 02/03/22 04:11 Alkaline Phosphatase 70 units/L (35-129) 02/03/22 04:11 Troponin T < 0.010 ng/mL (0.00-0.029) 02/02/22 04:12 NT-Pro-B Natriuret Pep 171.3 pg/mL (0-450) 02/02/22 04:12 Total Protein 6.5 g/dL (6.3-8.2) 02/03/22 04:11 Albumin 3.7 g/dL (3.9-5) L 02/03/22 04:11 Albumin/Globulin Ratio 1.3 % 02/03/22 04:11 TSH 2.810 mlU/mL (0.270-4.200) 02/03/22 04:11 Free T4 1.40 ng/dL (0.76-1.46) 02/03/22 04:11 Urine Color [place] (Yellow) 02/01/22 04:07 Urine Turbidity Clear (Clear) 02/01/22 04:07 Urine pH 5.0 (5.0-7.0) 02/01/22 04:07 Ur Specific [place] 1.038 (1.003-1.030) H 02/01/22 04:07 Urine Protein >500 mg/dL (Negative) 02/01/22 04:07 Urine Glucose (UA) Neg mg/dL (Negative) 02/01/22 04:07 Urine Ketones 20 mg/dL (Negative) 02/01/22 04:07 Urine Blood Mod (Negative) 02/01/22 04:07 Urine Nitrite Neg (Negative) 02/01/22 04:07 Urine Bilirubin Neg (Negative) 02/01/22 04:07 Urine Urobilinogen < 2.0 mg/dL (<2.0) 02/01/22 04:07 Ur Leukocyte Esterase Neg (Negative) 02/01/22 04:07 Urine WBC (Auto) 2.0 /HPF (0.0-6.0) 02/01/22 04:07 Urine RBC (Auto) 4.0 /HPF (0.0-6.0) 02/01/22 04:07 U Epithel Cells (Auto) 1.0 /HPF (0-13.0) 02/01/22 04:07 Urine Mucus 2+ /HPF 02/01/22 04:07 Salicylates < 0.3 mg/dL (2.8-20.0) L 02/01/22 22:49 Urine Opiates Screen Presumptive negative 02/01/22 04:07 Urine Methadone Screen Presumptive negative 02/01/22 04:07 Acetaminophen 5.0 ug/mL (10.0-30.0) L 02/01/22 22:49 Ur Barbiturates Screen Presumptive negative 02/01/22 04:07 Ur Phencyclidine Scrn Presumptive negative 02/01/22 04:07 Ur Amphetamines Screen Presumptive negative 02/01/22 04:07 U Benzodiazepines Scrn Presumptive negative 02/01/22 04:07 Urine Cocaine Screen Presumptive negative 02/01/22 04:07 U Marijuana (THC) Screen Presumptive negative 02/01/22 04:07 Drugs of Abuse Note Disclamer 02/01/22 04:07 Plasma/Serum Alcohol 0.01 % (0-0.07) 02/02/22 08:58 Ayers/IV: Voiding Method Condom Catheter Active Medications - Current Medications Current Medications: Generic Name Dose Route Start Last Admin Trade Name Freq PRN Reason Stop Dose Admin Acetaminophen 650 mg 02/02/22 13:00 Acetaminophen 325 Mg Tab PO Q4H PRN Pain MILD(1-3)/Fever >100.5/WAHL Buspirone HCl 7.5 mg 02/02/22 13:30 02/03/22 11:33 Buspirone 5 Mg Tab PO 7.5 mg BID WILBUR Administration Carvedilol 25 mg 02/03/22 10:00 Carvedilol 25 Mg Tab PO Q12HR WILBUR Chlordiazepoxide HCl 50 mg 02/02/22 14:00 02/03/22 00:54 Chlordiazepoxide 25 Mg Cap PO 50 mg Q1HR PRN Administration CIWA-Ar 8-15 Clonidine HCl 0.1 mg 02/03/22 08:56 02/03/22 11:33 Clonidine 0.1 Mg Tab PO 0.1 mg Q4H PRN Administration Agitation Famotidine 20 mg 02/02/22 14:00 02/03/22 10:33 Famotidine 20 Mg/2 Ml Inj IV 20 mg BID WILBUR Administration Fluoxetine HCl 30 mg 02/02/22 13:30 02/02/22 14:48 Fluoxetine 10 Mg Tab PO 30 mg QDAY WILBUR Administration Hydralazine HCl 10 mg 02/02/22 15:00 02/02/22 20:24 Hydralazine 20 Mg/1 Ml Inj IV 10 mg Q2H PRN Administration Blood Pressure Dextrose/Sodium Chloride 1,000 mls @ 125 mls/hr 02/02/22 13:00 02/02/22 23:32 D5ns IV 125 mls/hr DIRECT WILBUR Administration Dexmedetomidine HCl 200 mcg/ 50 mls @ 5.103 mls/hr 02/03/22 06:00 02/03/22 11:34 Sodium Chloride IV 0 mcg/kg/hr TITRATE WILBUR 0 mls/hr Titration Protocol 0.2 MCG/KG/HR Labetalol HCl 10 mg 02/02/22 21:40 Labetalol 20 Mg/4 Ml Inj IV Q6HR PRN Blood Pressure Lorazepam 2 mg 02/02/22 13:00 02/03/22 08:26 Lorazepam 2 Mg/Ml Vial IV 2 mg Q2H PRN Administration CINE-Ar 8-15 Metoclopramide HCl 10 mg 02/02/22 12:28 Metoclopramide 10 Mg/2 Ml Inj IV Q6H PRN Nausea And Vomiting Morphine Sulfate 2 mg 02/02/22 11:04 Morphine 2 Mg/1 Ml Inj IV Q4H PRN Pain, Moderate (4-6) Ondansetron HCl 4 mg 02/02/22 13:30 Ondansetron 4 Mg/2 Ml Inj IV Q8H PRN Nausea And Vomiting Sodium Chloride 10 ml 02/02/22 22:00 02/03/22 10:33 Sodium Chloride 0.9% 10 Ml Flush Syringe IV 10 ml BID WILBUR Administration Sodium Chloride 10 ml 02/02/22 12:28 Sodium Chloride 0.9% 10 Ml Flush Syringe IV PRN PRN LINE FLUSH Trazodone HCl 50 mg 02/02/22 22:00 02/02/22 21:46 Trazodone 50 Mg Tab PO 50 mg QHS WILBUR Administration
[2022-02-03] MEDS: FLUoxetine 10 MG TAB PO SCH (14:20)
[2022-02-03] MEDS: carvediloL 25 MG TAB PO SCH ×2 (14:20→21:26)
[2022-02-03] MEDS: D5W/0.9% NACL 1,000 ML IV SCH ×2 (14:22→21:33)
[2022-02-03 18:26] LABS: Blood Urea Nitrogen 17 mg/dL (9-20)
[2022-02-03] MEDS: traZODone 50 MG TAB PO SCH (21:26)
[2022-02-03] MEDS: ONDANSETRON 4 MG/2 ML INJ IV PRN (21:53)
[2022-02-04 05:14] LABS: Hematocrit 30.9 % (35.5-45.6); Hemoglobin 10.2 gm/dl (11.8-15.2); Mean Corpuscular HGB Conc 33 % (32-34); Mean Corpuscular Volume 91 fl (84-94); Red Blood Count 3.39 M/mm3 (3.65-5.03); Red Cell Distribution Width 14.8 % (13.2-15.2)
[2022-02-04 05:15] LABS: Platelet Count 96 K/mm3 (140-440)
[2022-02-04 05:25] LABS: Alanine Aminotransferase 64 units/L (7-56); Albumin 3.1 g/dL (3.9-5); BUN/Creatinine Ratio 10; Blood Urea Nitrogen 15 mg/dL (9-20); Calcium 6.6 mg/dL (8.4-10.2); Hemolysis Index 11
[2022-02-04] MEDS: ONDANSETRON 4 MG/2 ML INJ IV PRN (06:02)
[2022-02-04] MEDS: chlordiazePOXIDE 25 MG CAP PO PRN (06:02)
[2022-02-04] MEDS: D5W/0.9% NACL 1,000 ML IV SCH (06:02)
[2022-02-04] MEDS: MORPHINE 2 MG/1 ML INJ IV PRN ×2 (07:04→13:10)
--- NOTE | 2022-02-04 08:53 | XRay Report ---
Left ankle 3 views INDICATION: Pain FINDINGS: Alignment appears normal. No focal soft tissue abnormality. Talar dome appears intact. Calc aneus appears intact. IMPRESSION: No acute fracture is seen. Signer Name: Carlos Smith MD Signed: 02/04/2022 8:49 AM Workstation Name: [id number]
[2022-02-04] MEDS: carvediloL 25 MG TAB PO SCH (10:35)
[2022-02-04] MEDS: FAMOTIDINE 20 MG/2 ML INJ IV SCH ×2 (10:35→21:00)
[2022-02-04] MEDS: busPIRone 5 MG TAB PO SCH ×2 (10:35→21:00)
--- NOTE | 2022-02-04 11:12 | Progress Note ---
Assessment and Plan Impression: Alcohol abuse Cardiomegaly noted on chest x-ray Snoring rule out sleep apnea Recommendation: Continue with clonidine. Consider sleep study as outpatient. Monitor patient closely and careful regarding sedation on this patient due to suspected sleep apnea. Consider echocardiogram for cardiomegaly Subjective Date of service: 02/04/22 Interval history: History obtained from the chart. Patient unable to provide a history as he is sedated at this time. 42-year-old male brought in by significant other for medical clearance for removal wounds for alcohol rehab. Patient history of hypertension. Every alcohol consumption. Last alcohol use was today. Patient apparently drinks a lot of vodka on a regular basis. Because of his high blood pressure which could not be controlled patient being admitted to the hospitalist service. Patient was severely agitated. Patient is willing for detoxification. Patient is willing to stop alcohol. 02/04/2022: Patient is awake and alert. No longer on sedation. On clonidine. Complain of hiccups for last 1 week. Does give history of snoring at home. No previous sleep studies has been performed Objective Vital Signs - 12hr 02/03/22 02/04/22 02/04/22 23:59 00:00 00:05 Temperature 99.1 F Pulse Rate 103 H 102 H 105 H Pulse Rate [ 102 H Apical] Respiratory 19 17 Rate Blood Pressure 109/71 119/88 O2 Sat by Pulse 98 98 Oximetry 02/04/22 02/04/22 02/04/22 01:00 02:00 03:00 Temperature Pulse Rate 104 H 105 H 108 H Pulse Rate [ Apical] Respiratory 19 21 23 Rate Blood Pressure 115/81 120/82 112/84 O2 Sat by Pulse 94 97 96 Oximetry 02/04/22 02/04/22 02/04/22 03:30 04:00 04:01 Temperature Pulse Rate 107 H 109 H Pulse Rate [ 109 H Apical] Respiratory 24 24 Rate Blood Pressure 139/100 O2 Sat by Pulse 97 97 Oximetry 02/04/22 02/04/22 02/04/22 05:00 06:00 07:00 Temperature Pulse Rate 110 H 110 H 107 H Pulse Rate [ Apical] Respiratory 29 H 26 H 26 H Rate Blood Pressure 125/95 135/96 126/90 O2 Sat by Pulse 98 99 Oximetry 02/04/22 02/04/22 02/04/22 07:04 07:08 07:34 Temperature 100.0 F H Pulse Rate Pulse Rate [ Apical] Respiratory 18 12 Rate Blood Pressure O2 Sat by Pulse Oximetry Constitutional: asleep, other (Loud snoring noted. Low-grade fever) Eyes: non-icteric ENT: oropharynx moist Neck: supple, no lymphadenopathy Ascultation: Bilateral: clear Cardiovascular: other (Tachycardia present) Gastrointestinal: normoactive bowel sounds, soft, non-tender Integumentary: normal Extremities: no cyanosis, no edema Neurologic: unable to assess, other (Sedated) CBC and BMP: 02/04/22 03:56 02/04/22 03:56 Abnormal lab findings: Abnormal Labs 02/01/22 02/01/22 02/01/22 04:07 22:49 22:49 RBC Hgb Hct Plt Count [place] % (Auto) Lymph # (Auto) Seg Neutrophils % Chloride Creatinine Glucose POC Glucose Calcium Total Bilirubin AST ALT Total Protein Albumin Ur Specific [place] 1.038 H Salicylates < 0.3 L Acetaminophen 5.0 L Plasma/Serum Alcohol 02/01/22 02/01/22 02/01/22 22:49 22:49 22:49 RBC Hgb Hct Plt Count [place] % (Auto) 7.7 H Lymph # (Auto) 1.0 L Seg Neutrophils % 76.8 H Chloride 95.8 L Creatinine Glucose 162 H POC Glucose Calcium 8.2 L Total Bilirubin AST 251 H ALT 115 H Total Protein Albumin Ur Specific [place] Salicylates Acetaminophen Plasma/Serum Alcohol 0.28 H 02/03/22 02/03/22 02/03/22 04:11 04:11 15:30 RBC Hgb Hct Plt Count 115 L [place] % (Auto) 8.2 H Lymph # (Auto) 1.0 L Seg Neutrophils % 77.4 H Chloride 96.9 L Creatinine 1.7 H 1.5 H Glucose 139 H POC Glucose Calcium 8.1 L Total Bilirubin 1.30 H AST 181 H ALT 94 H Total Protein Albumin 3.7 L Ur Specific [place] Salicylates Acetaminophen Plasma/Serum Alcohol 02/03/22 02/04/22 02/04/22 16:23 03:56 03:56 RBC 3.39 L Hgb 10.2 L Hct 30.9 L D Plt Count 96 L [place] % (Auto) Lymph # (Auto) Seg Neutrophils % Chloride Creatinine 1.5 H Glucose 136 H POC Glucose 143 H Calcium 6.6 L D Total Bilirubin AST 88 H ALT 64 H Total Protein 5.4 L Albumin 3.1 L Ur Specific [place] Salicylates Acetaminophen Plasma/Serum Alcohol
[2022-02-04] MEDS: FLUoxetine 10 MG TAB PO SCH (12:50)
[2022-02-04] MEDS: hydrALAZINE 20 MG/1 ML INJ IV PRN (12:57)
[2022-02-04] MEDS: METOPROLOL TARTRATE 50 MG TAB PO SCH ×2 (13:08→20:57)
--- NOTE | 2022-02-04 13:18 | Progress Note ---
Assessment and Plan Assessment and plan: 42-year-old male brought in by significant other for medical clearance for removal wounds for alcohol rehab. Patient history of hypertension. Every alcohol consumption. Last alcohol use was today. Patient apparently drinks a lot of vodka on a regular basis. Because of his high blood pressure which could not be controlled patient being admitted to the hospitalist service. Patient was severely agitated. More calm during my examination. Patient is willing for detoxification. Patient is willing to stop alcohol. 02/03: Patient was transferred to the [facility] yesterday due to confusion, agitation and hypertensive urgency. Remains on restraints. Was placed on Precedex. This morning we will start patient on clonidine and attempt to wean down Precedex. If this does not work patient will likely be transferred to the ICU for Precedex management. Of discussed with nursing staff I will also consulted supervisor mapping. He continues on the CIWA protocol. He is also noted to have acute kidney injury for which a repeat study has been obtained in addition to fluid resuscitation. If worsening renal function will obtain nephrology consulted Lifestyle modification counseling when patient is more stable able to follow commands 02/04: Patient seen and examined, weaned off precedex, no further anxiety, or agitation. He has intermittent confusion and was seen by Psych team today. I did speak with the family-?spouse who states the patient has been depressed and it appears both of them were in detox at some point together. He understands the importance to quit ETOH Use. He understand the consequence of continued drinking. I will like to see a better improvement in BP prior to discharge, I have adj usted his BB to TID, rather unconventional but will help control the tachycardia and BP and hope less use of the clonidine which was only for agitation and on discharge can be placed on BID. 15 MINS of counselling re-enforced again. Monitor Thrombocytopenia. Transfer patient to Telemetry Anticipate discharge in AM. #Hypertensive emergency Current Visit: Yes Status: Acute Plan to address problem: Patient initiated on valsartan carvedilol and amlodipine. Hydralazine as needed. # Acute kidney injury likely secondary to vasomotor nephropathy #Sinus tachycardia Current Visit: Yes Status: Acute Plan to address problem: Secondary to dehydration and volume depletion and alcohol withdrawal IV fluids and IV vancomycin for now # EtOH dependence Current Visit: Yes Status: Acute Plan to address problem: CIWA protocol for now # Delirium tremens Current Visit: Yes Status: Inactive Plan to address problem: Not present at this time To watch for DTs IV Ativan as per [facility] protocol #Thrombocytopenia ? HIT vs ETOH related Bone marrow suppression # DVT prophylaxis Current Visit: Yes Status: Acute Plan to address problem: On heparin and GI prophylaxis # Advance care planning Current Visit: Yes Status: Acute Plan to address problem: Disease education collected, care plan discussed, diagnosis discussed, prognosis discussed. Patient is full code. Patient acknowledges understanding and agreement with care plan. +30 minutes. History Interval history: Patient seen and examined appears to be improving mentally, no new confusion Hospitalist Physical - Physical exam Narrative exam: VITAL SIGNS: Reviewed. GENERAL: The patient appears normally developed, vital signs as documented. HEAD: No signs of head trauma. EYES: Pupils are equal. Extraocular motions intact. EARS: Hearing grossly intact. MOUTH: Oropharynx is normal. NECK: No adenopathy, no JVD. CHEST: Chest with clear breath sounds bilaterally. No wheezes, rales, or rhonchi. CARDIAC: Tachycardic with regular rate. S1 and S2, without murmurs, gallops, or rubs. VASCULAR: No Edema. Peripheral pulses normal and equal in all extremities. ABDOMEN: Soft, non tender and non distended. No rebound or guarding, and no masses palpated. Bowel Sounds normal. MUSCULOSKELETAL: Good range of motion of all major joints. Extremities without clubbing, cyanosis or edema. NEUROLOGIC EXAM: Alert and oriented x person and place no focal sensory or strength deficits. Speech normal. Follows commands. PSYCHIATRIC: Mood normal. SKIN: detail exam as documented in skin assessment - Constitutional Vitals: Temp Pulse Resp BP Pulse Ox 99.9 F H 119 H 12 137/98 99 02/04/22 11:28 02/04/22 13:08 02/04/22 07:34 02/04/22 13:08 02/04/22 07:00 General appearance: Present: no acute distress, well-nourished HEART Score - HEART Score Troponin: Troponin T < 0.010 ng/mL (0.00-0.029) 02/02/22 04:12 Results - Labs CBC & Chem 7: 02/04/22 03:56 02/04/22 03:56 Labs: Laboratory Last Values WBC 5.7 K/mm3 (4.5-11.0) 02/04/22 03:56 RBC 3.39 M/mm3 (3.65-5.03) L 02/04/22 03:56 Hgb 10.2 gm/dl (11.8-15.2) L 02/04/22 03:56 Hct 30.9 % (35.5-45.6) L D 02/04/22 03:56 MCV 91 fl (84-94) 02/04/22 03:56 MCH 30 pg (28-32) 02/04/22 03:56 MCHC 33 % (32-34) 02/04/22 03:56 RDW 14.8 % (13.2-15.2) 02/04/22 03:56 Plt Count 96 K/mm3 (140-440) L 02/04/22 03:56 Lymph % (Auto) 13.6 % (13.4-35.0) 02/03/22 04:11 [place] % (Auto) 8.2 % (0.0-7.3) H 02/03/22 04:11 Eos % (Auto) 0.4 % (0.0-4.3) 02/03/22 04:11 Baso % (Auto) 0.4 % (0.0-1.8) 02/03/22 04:11 Lymph # (Auto) 1.0 K/mm3 (1.2-5.4) L 02/03/22 04:11 [place] # (Auto) 0.6 K/mm3 (0.0-0.8) 02/03/22 04:11 Eos # (Auto) 0.0 K/mm3 (0.0-0.4) 02/03/22 04:11 Baso # (Auto) 0.0 K/mm3 (0.0-0.1) 02/03/22 04:11 Seg Neutrophils % 77.4 % (40.0-70.0) H 02/03/22 04:11 Seg Neutrophils # 5.9 K/mm3 (1.8-7.7) 02/03/22 04:11 Sodium 142 mmol/L (137-145) 02/04/22 03:56 Potassium 3.7 mmol/L (3.6-5.0) 02/04/22 03:56 Chloride 105.9 mmol/L (98-107) 02/04/22 03:56 Carbon Dioxide 24 mmol/L (22-30) 02/04/22 03:56 Anion Gap 16 mmol/L 02/04/22 03:56 BUN 15 mg/dL (9-20) 02/04/22 03:56 Creatinine 1.5 mg/dL (0.8-1.3) H 02/04/22 03:56 Estimated GFR > 60 ml/min 02/04/22 03:56 BUN/Creatinine Ratio 10 % 02/04/22 03:56 Glucose 136 mg/dL (75-100) H 02/04/22 03:56 POC Glucose 118 mg/dL (70-105) H 02/04/22 11:11 Calcium 6.6 mg/dL (8.4-10.2) L D 02/04/22 03:56 Total Bilirubin 1.00 mg/dL (0.1-1.2) 02/04/22 03:56 AST 88 units/L (5-40) H 02/04/22 03:56 ALT 64 units/L (7-56) H 02/04/22 03:56 Alkaline Phosphatase 59 units/L (35-129) 02/04/22 03:56 Troponin T < 0.010 ng/mL (0.00-0.029) 02/02/22 04:12 NT-Pro-B Natriuret Pep 171.3 pg/mL (0-450) 02/02/22 04:12 Total Protein 5.4 g/dL (6.3-8.2) L 02/04/22 03:56 Albumin 3.1 g/dL (3.9-5) L 02/04/22 03:56 Albumin/Globulin Ratio 1.3 % 02/04/22 03:56 TSH 2.810 mlU/mL (0.270-4.200) 02/03/22 04:11 Free T4 1.40 ng/dL (0.76-1.46) 02/03/22 04:11 Urine Color [place] (Yellow) 02/01/22 04:07 Urine Turbidity Clear (Clear) 02/01/22 04:07 Urine pH 5.0 (5.0-7.0) 02/01/22 04:07 Ur Specific [place] 1.038 (1.003-1.030) H 02/01/22 04:07 Urine Protein >500 mg/dL (Negative) 02/01/22 04:07 Urine Glucose (UA) Neg mg/dL (Negative) 02/01/22 04:07 Urine Ketones 20 mg/dL (Negative) 02/01/22 04:07 Urine Blood Mod (Negative) 02/01/22 04:07 Urine Nitrite Neg (Negative) 02/01/22 04:07 Urine Bilirubin Neg (Negative) 02/01/22 04:07 Urine Urobilinogen < 2.0 mg/dL (<2.0) 02/01/22 04:07 Ur Leukocyte Esterase Neg (Negative) 02/01/22 04:07 Urine WBC (Auto) 2.0 /HPF (0.0-6.0) 02/01/22 04:07 Urine RBC (Auto) 4.0 /HPF (0.0-6.0) 02/01/22 04:07 U Epithel Cells (Auto) 1.0 /HPF (0-13.0) 02/01/22 04:07 Urine Mucus 2+ /HPF 02/01/22 04:07 Salicylates < 0.3 mg/dL (2.8-20.0) L 02/01/22 22:49 Urine Opiates Screen Presumptive negative 02/01/22 04:07 Urine Methadone Screen Presumptive negative 02/01/22 04:07 Acetaminophen 5.0 ug/mL (10.0-30.0) L 02/01/22 22:49 Ur Barbiturates Screen Presumptive negative 02/01/22 04:07 Ur Phencyclidine Scrn Presumptive negative 02/01/22 04:07 Ur Amphetamines Screen Presumptive negative 02/01/22 04:07 U Benzodiazepines Scrn Presumptive negative 02/01/22 04:07 Urine Cocaine Screen Presumptive negative 02/01/22 04:07 U Marijuana (THC) Screen Presumptive negative 02/01/22 04:07 Drugs of Abuse Note Disclamer 02/01/22 04:07 Plasma/Serum Alcohol 0.01 % (0-0.07) 02/02/22 08:58 Coronavirus (PCR) Negative (Negative) 02/03/22 06:27 [place]/IV: Voiding Method Condom Catheter Active Medications - Current Medications Current Medications: Generic Name Dose Route Start Last Admin Trade Name Freq PRN Reason Stop Dose Admin Acetaminophen 650 mg 02/02/22 13:00 Acetaminophen 325 Mg Tab PO Q4H PRN Pain MILD(1-3)/Fever >100.5/WAHL Buspirone HCl 7.5 mg 02/02/22 13:30 02/04/22 10:35 Buspirone 5 Mg Tab PO 7.5 mg BID WILBUR Administration Chlordiazepoxide HCl 50 mg 02/02/22 14:00 02/04/22 06:02 Chlordiazepoxide 25 Mg Cap PO 50 mg Q1HR PRN Administration BRIE-Julio 8-15 Clonidine HCl 0.1 mg 02/03/22 08:56 02/03/22 16:44 Clonidine 0.1 Mg Tab PO 0.1 mg Q4H PRN Administration Agitation Famotidine 20 mg 02/02/22 14:00 02/04/22 10:35 Famotidine 20 Mg/2 Ml Inj IV 20 mg BID WILBUR Administration Fluoxetine HCl 30 mg 02/02/22 13:30 02/04/22 12:50 Fluoxetine 10 Mg Tab PO 30 mg QDAY WILBUR Administration Hydralazine HCl 10 mg 02/02/22 15:00 02/02/22 20:24 Hydralazine 20 Mg/1 Ml Inj IV 10 mg Q2H PRN Administration Blood Pressure Dexmedetomidine HCl 200 mcg/ 50 mls @ 5.103 mls/hr 02/03/22 06:00 02/03/22 11:34 Sodium Chloride IV 0 mcg/kg/hr TITRATE WILBUR 0 mls/hr Titration Protocol 0.2 MCG/KG/HR Calcium Chloride 1,000 mg/ 110 mls @ 660 mls/hr 02/04/22 13:12 Sodium Chloride IV 02/04/22 13:21 ONCE ONE Labetalol HCl 10 mg 02/02/22 21:40 Labetalol 20 Mg/4 Ml Inj IV Q6HR PRN Blood Pressure Lorazepam 2 mg 02/02/22 13:00 02/03/22 08:26 Lorazepam 2 Mg/Ml Vial IV 2 mg Q2H PRN Administration MOLINA-Julio 8-15 Metoclopramide HCl 10 mg 02/02/22 12:28 Metoclopramide 10 Mg/2 Ml Inj IV Q6H PRN Nausea And Vomiting Metoprolol Tartrate 50 mg 02/04/22 14:00 02/04/22 13:08 Metoprolol Tartrate 50 Mg Tab PO 50 mg TID WILBUR Administration Morphine Sulfate 2 mg 05/06/22 11:04 02/04/22 13:10 Morphine 2 Mg/1 Ml Inj IV 2 mg Q4H PRN Administration Pain, Moderate (4-6) Ondansetron HCl 4 mg 02/02/22 13:30 02/04/22 06:02 Ondansetron 4 Mg/2 Ml Inj IV 4 mg Q8H PRN Administration Nausea And Vomiting Sodium Chloride 10 ml 02/02/22 22:00 02/04/22 10:40 Sodium Chloride 0.9% 10 Ml Flush Syringe IV 10 ml BID WILBUR Administration Sodium Chloride 10 ml 02/02/22 12:28 Sodium Chloride 0.9% 10 Ml Flush Syringe IV PRN PRN LINE FLUSH Trazodone HCl 50 mg 02/02/22 22:00 02/03/22 21:26 Trazodone 50 Mg Tab PO 50 mg QHS WILBUR Administration
[2022-02-04] MEDS ORDERED: CALCIUM CHLORIDE 1,000 MG in SODIUM CHLORIDE 0.9% 100 ML IV ONE (14:00)
[2022-02-04] MEDS: LORazepam 2 MG/ML VIAL IV PRN ×2 (16:01→21:00)
[2022-02-04] MEDS: traZODone 50 MG TAB PO SCH (21:00)
[2022-02-05] MEDS: hydrALAZINE 20 MG/1 ML INJ IV PRN (00:53)
[2022-02-05 05:50] LABS: Hematocrit 33.6 % (35.5-45.6); Hemoglobin 11.4 gm/dl (11.8-15.2); Mean Corpuscular HGB Conc 34 % (32-34); Mean Corpuscular Volume 91 fl (84-94); Platelet Count 127 K/mm3 (140-440); Red Blood Count 3.67 M/mm3 (3.65-5.03); Red Cell Distribution Width 14.8 % (13.2-15.2)
[2022-02-05 06:14] LABS: BUN/Creatinine Ratio 7; Blood Urea Nitrogen 10 mg/dL (9-20); Calcium 6.9 mg/dL (8.4-10.2); Hemolysis Index 2
[2022-02-05] MEDS ORDERED: MAGNESIUM SULFATE 2 GM in SODIUM CHLORIDE 0.9% 50 ML IV ONE (07:36)
[2022-02-05] MEDS ORDERED: POTASSIUM CHLORIDE 10 MEQ 10 MEQ/100 ML BAG IV SCH (08:00)
--- NOTE | 2022-02-05 08:27 | Discharge Summary ---
Providers - Providers Date of Admission: 02/02/22 11:04 Attending physician: AWILDA MCINTOSH MD 02/03/22 09:18 Consult to Physician [CONS] Routine Comment: Consulting Provider: ANA BURROWS Physician Instructions: Reason For Exam: ETOH WITHDRAWAL ON PRECEDEX Hospitalization Reason for admission: etoh withdrawal Condition: Serious Hospital course: 42-year-old male brought in by significant other for medical clearance for removal wounds for alcohol rehab. Patient history of hypertension. Every alcohol consumption. Last alcohol use was today. Patient apparently drinks a lot of vodka on a regular basis. Because of his high blood pressure which could not be controlled patient being admitted to the hospitalist service. Patient was severely agitated. More calm during my examination. Patient is willing for detoxification. Patient is willing to stop alcohol. 02/03: Patient was transferred to the IMCU yesterday due to confusion, agitation and hypertensive urgency. Remains on restraints. Was placed on Precedex. This morning we will start patient on clonidine and attempt to wean down Precedex. If this does not work patient will likely be transferred to the ICU for Precedex management. Of discussed with nursing staff I will also consulted smoke tester. He continues on the CIWA protocol. He is also noted to have acute kidney injury for which a repeat study has been obtained in addition to fluid resuscitation. If worsening renal function will obtain nephrology consulted Lifestyle modification counseling when patient is more stable able to follow commands 02/04: Patient seen and examined, weaned off precedex, no further anxiety, or agitation. He has intermittent confusion and was seen by Psych team today. I did speak with the family-?spouse who states the patient has been depressed and it appears both of them were in detox at some point together. He understands the importance to quit ETOH Use. He understand the consequence of continued drinking. I will like to see a better improvement in BP prior to discharge, I have adjusted his BB to TID, rather unconventional but will help control the tachycardia and BP and hope less use of the clonidine which was only for agitation and on discharge can be placed on BID. 15 MINS of counselling re-enforced again. Monitor Thrombocytopenia. Transfer patient to Telemetry Anticipate discharge in AM. 02/05: Patient doing well today, no new complaints, still some jittery feeling but no confusion, no shortness of breath and no ataxic gait. Patient is stable, counselling provided again about etoh use and the dangers, he verbalized understanding. He is to monitor his BP and HR outpatient and follow with his doctors. He is also to enroll in an AA program or return to the detox facility for a longer etoh rehab program With her weight loss counseling the patient verbalized understanding #Hypertensive emergency Current Visit: Yes Status: Acute Plan to address problem: Patient initiated on valsartan carvedilol and amlodipine. Hydralazine as needed. # Acute kidney injury likely secondary to vasomotor nephropathy #Sinus tachycardia Current Visit: Yes Status: Acute Plan to address problem: Secondary to dehydration and volume depletion and alcohol withdrawal IV fluids and IV vancomycin for now # EtOH dependence Current Visit: Yes Status: Acute Plan to address problem: CIWA protocol for now # Delirium tremens Current Visit: Yes Status: Inactive Plan to address problem: Not present at this time To watch for DTs IV Ativan as per [facility] protocol #Thrombocytopenia ? HIT vs ETOH related Bone marrow suppression Disposition: 01 HOME / SELF CARE / HOMELESS Final Discharge Diagnosis (Prints w/discharge instructions): Hypertensive emergency. # Acute kidney injury likely secondary to vasomotor nephropathy. #Sinus tachycardia. # EtOH dependence. # Delirium tremens. #Thrombocytopenia Time spent for discharge: 35 mins Core Measure Documentation - Palliative Care Palliative Care/ Comfort Measures: Not Applicable - Core Measures Any of the following diagnoses?: none Exam - Physical Exam Narrative exam: VITAL SIGNS: Reviewed. GENERAL: The patient appears normally developed, vital signs as documented. HEAD: No signs of head trauma. EYES: Pupils are equal. Extraocular motions intact. EARS: Hearing grossly intact. MOUTH: Oropharynx is normal. NECK: No adenopathy, no JVD. CHEST: Chest with clear breath sounds bilaterally. No wheezes, rales, or rhonchi. CARDIAC: Tachycardic with regular rate. S1 and S2, without murmurs, gallops, or rubs. VASCULAR: No Edema. Peripheral pulses normal and equal in all extremities. ABDOMEN: Soft, non tender and non distended. No rebound or guarding, and no masses palpated. Bowel Sounds normal. MUSCULOSKELETAL: Good range of motion of all major joints. Extremities without clubbing, cyanosis or edema. NEUROLOGIC EXAM: Alert and oriented x 3 no focal sensory or strength deficits. Speech normal. Follows commands. PSYCHIATRIC: Mood normal. SKIN: detail exam as documented in skin assessment - Constitutional Vitals: Temp Pulse Resp BP Pulse Ox 98.7 F 113 H 16 160/96 97 02/05/22 07:46 02/05/22 07:46 02/05/22 07:46 02/05/22 07:46 02/05/22 07:46 Plan Activity: advance as tolerated, fall precautions Diet: low fat Special Instructions: record daily weights, record daily BP diary, other Plan of Treatment: Must enroll in the weight loss. Follow up with: JESÚS VILLANUEVA MD [Staff Physician] - 3-5 Days THOMAS DURÁN MD [Staff Physician] - 7 Days Prescriptions: busPIRone [Buspar] 7.5 mg PO BID #60 tablet Losartan [Cozaar] 25 mg PO QDAY #30 tab Metoprolol Xl [Metoprolol SUCCINATE ER TAB] 100 mg PO QDAY #30 tablet Famotidine [Pepcid] 20 mg PO BID #30 tablet FLUoxetine [PROzac] 30 mg PO QDAY #30 tablet
[2022-02-05] MEDS ORDERED: MAGNESIUM SULFATE 2 GM/50 ML BAG IV SCH (08:30)
[2022-02-05] MEDS: METOPROLOL TARTRATE 50 MG TAB PO SCH ×2 (09:16→14:29)
[2022-02-05] MEDS: FLUoxetine 10 MG TAB PO SCH (09:17)
[2022-02-05] MEDS: busPIRone 5 MG TAB PO SCH (09:18)
[2022-02-05] MEDS: POTASSIUM CHLORIDE ER 20 MEQ TAB PO SCH ×2 (09:19→11:09)
[2022-02-05] MEDS: MORPHINE 2 MG/1 ML INJ IV PRN (09:40)
[2022-02-05] MEDS ORDERED: FAMOTIDINE 20 MG TAB PO SCH (10:00)
--- NOTE | 2022-02-05 10:42 | Event Note ---
Date: 02/05/22 The patient was off the floor for an echo.
--- NOTE | 2022-02-05 11:42 | Progress Note ---
Assessment and Plan Impression: Alcohol abuse Cardiomegaly noted on chest x-ray Snoring rule out sleep apnea Recommendation: Continue with clonidine. Consider sleep study as outpatient. Patient agreeable to have sleep study as outpatient Monitor patient closely and careful regarding sedation on this patient due to suspected sleep apnea. Consider echocardiogram for cardiomegaly Will sign off at this point Subjective Date of service: 02/05/22 Interval history: History obtained from the chart. Patient unable to provide a history as he is sedated at this time. 42-year-old male brought in by significant other for medical clearance for removal wounds for alcohol rehab. Patient history of hypertension. Every alcohol consumption. Last alcohol use was today. Patient apparently drinks a lot of vodka on a regular basis. Because of his high blood pressure which could not be controlled patient being admitted to the hospitalist service. Patient was severely agitated. Patient is willing for detoxification. Patient is willing to stop alcohol. 02/04/2022: Patient is awake and alert. No longer on sedation. On clonidine. Complain of hiccups for last 1 week. Does give history of snoring at home. No previous sleep studies has been performed 02/05/2022: Feeling much better. Currently receiving magnesium infusion for low magnesium level. Objective Vital Signs - 12hr 02/05/22 02/05/22 02/05/22 00:17 00:53 03:00 Temperature 97.9 F Pulse Rate 113 H 109 H Respiratory 20 Rate Blood Pressure 162/113 162/113 O2 Sat by Pulse 97 Oximetry 02/05/22 02/05/22 02/05/22 04:30 07:46 09:16 Temperature 99.9 F H 98.7 F Pulse Rate 116 H 113 H 121 H Respiratory 19 16 Rate Blood Pressure 140/105 160/96 161/111 O2 Sat by Pulse 97 97 Oximetry Constitutional: asleep, other (Loud snoring noted. Low-grade fever) Eyes: non-icteric ENT: oropharynx moist Neck: supple, no lymphadenopathy Ascultation: Bilateral: clear Cardiovascular: other (Tachycardia present) Gastrointestinal: normoactive bowel sounds, soft, non-tender Integumentary: normal Extremities: no cyanosis, no edema Neurologic: unable to assess, other (Sedated) CBC and BMP: 02/05/22 05:07 02/05/22 05:07 Abnormal lab findings: Abnormal Labs 02/01/22 02/01/22 02/01/22 04:07 22:49 22:49 RBC Hgb Hct Plt Count [place] % (Auto) Lymph # (Auto) Seg Neutrophils % Potassium Chloride Creatinine Glucose POC Glucose Calcium Magnesium Total Bilirubin AST ALT Total Protein Albumin Ur Specific [place] 1.038 H Salicylates < 0.3 L Acetaminophen 5.0 L Plasma/Serum Alcohol 02/01/22 02/01/22 02/01/22 22:49 22:49 22:49 RBC Hgb Hct Plt Count [place] % (Auto) 7.7 H Lymph # (Auto) 1.0 L Seg Neutrophils % 76.8 H Potassium Chloride 95.8 L Creatinine Glucose 162 H POC Glucose Calcium 8.2 L Magnesium Total Bilirubin AST 251 H ALT 115 H Total Protein Albumin Ur Specific [place] Salicylates Acetaminophen Plasma/Serum Alcohol 0.28 H 02/03/22 02/03/22 02/03/22 04:11 04:11 15:30 RBC Hgb Hct Plt Count 115 L [place] % (Auto) 8.2 H Lymph # (Auto) 1.0 L Seg Neutrophils % 77.4 H Potassium Chloride 96.9 L Creatinine 1.7 H 1.5 H Glucose 139 H POC Glucose Calcium 8.1 L Magnesium Total Bilirubin 1.30 H AST 181 H ALT 94 H Total Protein Albumin 3.7 L Ur Specific [place] Salicylates Acetaminophen Plasma/Serum Alcohol 02/03/22 02/04/22 02/04/22 16:23 03:56 03:56 RBC 3.39 L Hgb 10.2 L Hct 30.9 L D Plt Count 96 L [place] % (Auto) Lymph # (Auto) Seg Neutrophils % Potassium Chloride Creatinine 1.5 H Glucose 136 H POC Glucose 143 H Calcium 6.6 L D Magnesium Total Bilirubin AST 88 H ALT 64 H Total Protein 5.4 L Albumin 3.1 L Ur Specific [place] Salicylates Acetaminophen Plasma/Serum Alcohol 02/04/22 02/05/22 02/05/22 11:11 05:07 05:07 RBC Hgb 11.4 L Hct 33.6 L Plt Count 127 L [place] % (Auto) Lymph # (Auto) Seg Neutrophils % Potassium 3.2 L Chloride Creatinine 1.4 H Glucose 112 H POC Glucose 118 H Calcium 6.9 L Magnesium Total Bilirubin AST ALT Total Protein Albumin Ur Specific [place] Salicylates Acetaminophen Plasma/Serum Alcohol 02/05/22 05:07 RBC Hgb Hct Plt Count [place] % (Auto) Lymph # (Auto) Seg Neutrophils % Potassium Chloride Creatinine Glucose POC Glucose Calcium Magnesium 1.00 L Total Bilirubin AST ALT Total Protein Albumin Ur Specific [place] Salicylates Acetaminophen Plasma/Serum Alcohol
[2022-02-05] MEDS: cloNIDine 0.1 MG TAB PO PRN (17:16)
[2022-02-05] MEDS ORDERED: hydrALAZINE 20 MG/1 ML INJ IV ONE (18:31)
[2022-02-05 19:51] VITALS: BP 134/83
== END 2022-02-05 21:01 | disposition home or self-care (01) | DRG 304 ==
LOC: ED 21:45 → 4A 02-02 11:04 → CC1 02-03 06:00 → IMCU 02-03 06:09 → 4A 02-04 15:25
PROVIDERS: ADMIT Internal Medicine; ATTEND Internal Medicine
DX: I16.1 Hypertensive emergency (principal); N17.0 Acute kidney failure with tubular necrosis; F10.231 Alcohol dependence with withdrawal delirium; E66.9 Obesity, unspecified; Z20.822 Contact with and (suspected) exposure to COVID-19; D69.6 Thrombocytopenia, unspecified; E86.0 Dehydration; R00.0 Tachycardia, unspecified; F32.A Depression, unspecified; Z56.0 Unemployment, unspecified; Z79.899 Other long term (current) drug therapy; Z68.33 Body mass index [BMI] 33.0-33.9, adult; Y90.9 Presence of alcohol in blood, level not specified
CPT/HCPCS: 36415; 71046; 74018; 74176; 80048; 80053; 80307; 80320; 81001; 82565; 82962; 83735; 83880; 84439; 84443; 84484; 84520; 85025; 85027; 93005; 93306; 96374; 96375; 96376; 99285; G0378; J3490; J7121; C8929; G0480; J0360; J1200; J1940; J2060; J2270; J2405; J3360; J3475; J7030; J7040; J7042; U0003